=== PATIENT | female | born 1990 | race Caucasian/White ===

== ENCOUNTER 2017-03-23 15:37 | Emergency (ER) | payer SELFPAY ==
[~2017-03-23] VITALS: Ht 152.4 cm; Wt 53.0 kg
[2017-03-23 15:57] VITALS: BP 110/73
[2017-03-23] MEDS ORDERED: DIPH,PERTUSS(ACELL),TET VAC/PF 0.5 ML IM-VACC ONE ×2 (16:18→16:30)
[2017-03-23] MEDS ORDERED: LIDOCAINE 1%, 20ML SQ ONE (16:30)
[2017-03-23] MEDS ORDERED: BACITRACIN ZINC OINT 500U/GM, 0.9 GM ONE (16:44)
== END 2017-03-23 16:51 | disposition home or self-care (01) ==
LOC: ED 16:38
DX: S91.341A Puncture wound with foreign body, right foot, initial encounter (principal); Z23 Encounter for immunization; F17.210 Nicotine dependence, cigarettes, uncomplicated; W22.8XXA Striking against or struck by other objects, initial encounter; Y93.89 Activity, other specified; Y99.8 Other external cause status; Y92.89 Other specified places as the place of occurrence of the external cause
CPT/HCPCS: 10120; 90471; 90715